=== PATIENT | female | born 1945 | race Caucasian/White ===

== ENCOUNTER 2018-07-25 10:13 | Day surgery (SDC) | payer OTHER ==
--- NOTE | 2018-07-21 14:30 | EKG ---
Test Date: 2018-07-21 Test Time: 08:33:21 Marble Cleaner: PARAS MEASUREMENT RESULTS: Intervals: Rate: 56 MN: 134 QRSD: 74 QT: 406 QTc: 391 [place]: P: 15 MN: 134 QRS: 20 T: 46 INTERPRETIVE STATEMENTS: Sinus bradycardia Low voltage QRS Borderline ECG Compared to ECG 01/21/2009 13:22:47 Low QRS voltage now present Electronically Signed On 07-21-18 14:28:55 CDT by Mukesh Dudley
--- NOTE | 2018-07-21 20:46 | RAD REPORT ---
EXAM DESCRIPTION: RAD - Chest Pa And Lat (2 Views) - 07/21/2018 11:47 am CLINICAL HISTORY: preop Chest pain. COMPARISON: CHEST PA AND LAT 2 VIEW dated 12/09/2012; CHEST PA AND LAT 2 VIEW dated 01/21/2009; CHES T SINGLE VIEW dated 11/26/2002 FINDINGS: The lungs are clear. The heart is upper limit of normal in size. Bridging anterior thoraci c spine osteophytes. Left total shoulder arthroplasty seen. IMPRESSION: No acute or concerning finding suspected.
--- OUTSIDE RECORDS SUMMARY | 2018-07-25 10:19 | XMS REPORT | Clinical Summary ---
:1945 Author Organization [facility] Address [address] [place] [address] Care Team Providers Name Role Phone Lebron Gu MD Primary Care Provider Allergies Active Allergy Reactions Severity Noted Date Comments No Known Drug Allergies 10/04/2015 Medications Medication Sig Dispensed Refills Start Date End Date Status metoprolol succinate Take 100 mg by 0 Active XL (TOPROL-XL) 100 MG mouth daily. 24 hr tablet cholecalciferol, Take 5,000 Units by 0 Active vitamin D3, (VITAMIN mouth daily. D3) 5,000 unit capsule pyridoxine, vitamin Take 100 mg by 0 Active B6, (B-6) 100 MG mouth daily. tablet lidocaine (LIDODERM) Place 1 patch on 0 Active 5 % the skin daily. Remove & Discard patch within 12 hours or as directed by oxyCODone-acetaminoph Take 1 tablet by 0 Active en (PERCOCET) 10-325 mouth every 4 mg per tablet (four) hours as needed for moderate pain. 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 Family History Medical History Relation Name Comments Cancer Father Heart disease Father Thyroid disease Father Diabetes Mother Hypertension Mother Kidney disease Mother Relation Name Status Comments Father Mother Social History Tobacco Use Types Packs/Day Years Used Date Never Smoker Smokeless Tobacco: Never Used Alcohol Use Drinks/Week oz/Week Comments No Sex Assigned at Date Recorded Not on file Job Start Date Occupation Industry Not on file Not on file Not on file Travel History Travel Start Travel End No recent travel history available. Last Filed Vital Signs Not on file Plan of Treatment Health Maintenance Due Date Last Done Comments BREAST CANCER SCREENING 08/28/1995 COLON CANCER SCREENING 08/28/1995 SHINGLES VACCINES (#1) 08/28/1995 65+ PNEUMOCOCCAL VACCINE (1 of 2 - PCV13) 2010 PNEUMOCOCCAL POLYSACCHARIDE VACCINE AGE 65 AND OVER 2010 INFLUENZA VACCINE 09/22/2018 Results Not on fileafter 07/24/2017 Insurance Payer Benefit Plan / Subscriber ID Effective Dates Phone Address Type Group MEDICARE MEDICARE PART A xxxxxxxxxx 2010-Present [place], [place] Medicare AND B MEDICAID MEDICAID xxxxxxxxx 2011-Present Medicaid
[2018-07-25] MEDS ORDERED: Ringers Lactate 1,000 ML IV ONE (10:37)
[2018-07-25] MEDS ORDERED: LIDOCAINE 2% MPF 5 ML VIAL ONE (12:13)
[2018-07-25] MEDS ORDERED: PROPOFOL 200 MG/20 ML VIAL IV ONE (12:13)
[2018-07-25] MEDS ORDERED: MIDAZOLAM HCL 2 MG/2 ML INJ ONE (12:13)
[2018-07-25] MEDS ORDERED: CIPROFLOXACIN 400mg IV 400 MG/200 ML BAG IV ONE (13:01)
[2018-07-25] MEDS ORDERED: FENTANYL CITR 100 MCG/2 ML ONE (13:14)
--- NOTE | 2018-07-25 13:47 | P.BOP ---
Preoperative diagnosis: right inner thigh tender subQ mass 11x6 cm Postoperative diagnosis: same Primary procedure: Excisional biopsy of right inner thigh tender subQ mass 11x6 cm Secondary procedure: with layer closure Estimated blood loss: <10cc Specimen: mass Findings: deep subQ mass Anesthesia: General Complications: None Transferred to: Recovery Room Condition: Good
[2018-07-25] MEDS: HYDROMORPHONE HCL 1 MG/ML INJ ONE ×2 (13:55→14:01)
[2018-07-25] MEDS ORDERED: CODEINE 30MG/APAP 300MG TAB ONE (15:14)
--- NOTE | 2018-07-26 00:30 | OP ---
Date of Procedure: 07/25/2018 Surgeon: Riley Mae MD Preoperative Diagnosis: Right inner thigh subcutaneous tender mass, 11 x 6 cm. Postoperative Diagnosis: Right inner thigh subcutaneous tender mass, 11 x 6 cm. Procedure Performed: Excisional biopsy of right inner thigh mass with layered closure, 11 x 6 cm. Findings: Deep subcutaneous mass. Anesthesia: General plus local. Indications: This is a case of a female, who comes to us with a tender mass, increasing in size. Sh akshat is concerned. She wants that excised. The benefits, alternatives, and risks of excision were full y explained to the patient, which include but not limited to infection, bleeding, damage to adjacent structures, anesthesia complication, recurrence, LA, and even . She also understands this may n ot relieve any symptoms. She might need more than one surgical intervention. She understood and sig emmanuel a consent. Description Of Procedure: The patient was brought to the operating room, placed in supine position. Anesthesia was induced without complication. Previously in the holding area, we marked the area, me , and the patient. We made an incision over that area. We noticed deep in the subcutaneous tissue. We noticed this mass present, fatty tumor present. It does not involve the fascia, goes deep near t he fascia. The mass was completely excised with the help of blunt dissection. Then after that, we h ave a large cavity, so we have to close this in layers. We used 0 chromic for layers. We used 3-0 c hromic for the intermediate layers. We used 4-0 PDS for the more subcuticular closure and then Buckhorn patrick on top. Hemostasis was obtained before closure, also local anesthetic was done before closure w ith irrigation too. The patient tolerated the procedure well. The patient was sent to recovery in stable condition . JOSE/SHELLY Voice ID: [id number] Report ID: [id number]
--- NOTE | 2018-07-26 00:30 | DS ---
Date of Discharge: 07/25/2018 Diagnosis: Right inner thigh tender subcutaneous mass Procedure: Excisional biopsy of right inner thigh tender subcutaneous mass with layered closure. Disposition: Home. Activity: As tolerated. No heavy lifting. Followup: Follow up in my office in 1 week. Call for appointment at [phone]. Keep the area dry fo r 48 hours, then may remove the dressings and shower. Medications: Include Tylenol No. 3 q.4 hours p.r.n. pain and Bactrim DS p.o. b.i.d. JOSE/SHELLY Voice ID: [id number] Report ID: [id number]
== END 2018-07-25 15:27 | disposition home or self-care (01) ==
LOC: OR 10:13
PROVIDERS: ATTEND Surgery
PROC: 0JBL0ZZ Excision of Right Upper Leg Subcutaneous Tissue and Fascia, Open Approach (ICD-10-PCS; principal; 2018-07-25 13:45)
DX: D17.23 Benign lipomatous neoplasm of skin and subcutaneous tissue of right leg (principal); I10 Essential (primary) hypertension; Z80.9 Family history of malignant neoplasm, unspecified; Z83.3 Family history of diabetes mellitus; Z82.49 Family history of ischemic heart disease and other diseases of the circulatory system
CPT/HCPCS: 93005; 88304; 71046; 11406; J2704; J3010; J1170; J0744; 88305; J2250

== ENCOUNTER 2024-03-20 07:10 | Day surgery (SDC) | payer OTHER ==
[2024-03-07 15:54] LABS: Absolute Eosinophils 0.1 K/uL (0-0.5); Absolute Lymphocytes (CBC) 2.4 K/uL (0.7-4.9); Absolute Monocytes 0.6 K/uL (0.1-1.3); Absolute Neutrophil 3.7 K/uL (1.8-8.0); Basophils % 0.4 % (0-1.3); Eosinophils % 2.1 % (0-4.4); Hematocrit 40.2 % (36.0-45.0); Hemoglobin 13.5 g/dL (12.0-15.0); Lymphocytes % 35.4 % (15.3-44.8); MCH 29.6 pg (27.0-35.0); MCHC 33.5 g/dL (32.0-36.0); MCV 88.2 fL (80-100); MPV 7.4 fL (7.6-11.3); Monocytes % 8.1 % (3.3-12.3); Platelets 226 thou/uL (152-406); RBC Red Blood Cell Count 4.56 M/uL (3.86-4.86); Red Cell Distribution Width 13.8 % (12.1-15.2)
[2024-03-07 16:01] LABS: PT Prothrombin Time 11.4 SECONDS (9.4-12.5); Protime INR 1.09
--- NOTE | 2024-03-07 16:11 | RAD REPORT ---
Procedure: Chest Pa And Lat (2 Views) HISTORY: Preop for carotid arteriogram COMPARISON: 2019 FINDINGS: The lungs appear clear of acute infiltrate. No significant pleural effusion noted. The heart is normal size. IMPRESSION: No acute abnormality is displayed.
--- NOTE | 2024-03-09 11:55 | EKG ---
Test Date: 2024-03-07 Test Time: 16:25:24 Centrifugal Drier Operator: JIM MEASUREMENT RESULTS: Intervals: Rate: 50 MD: 136 QRSD: 70 QT: 416 QTc: 379 [place]: P: 48 MD: 136 QRS: 52 T: 75 INTERPRETIVE STATEMENTS: Sinus bradycardia Nonspecific ST abnormality Abnormal ECG Compared to ECG 07/21/2018 08:33:21 ST (T wave) deviation now present Electronically Signed On 03-09-24 11:54:58 OUTBOARD SYSTEM OPERATOR by Mauricio Pierson
[2024-03-20] MEDS ORDERED: NA CHLORIDE 0.9% 500 ML ONE (07:26)
[2024-03-20 07:47] VITALS: TEMP 97.5
[2024-03-20] MEDS ORDERED: HEPA 1000U/500MLS 2,000 UNIT/1,000 ML BAG IV ONE (08:30)
[2024-03-20] MEDS ORDERED: LIDOCAINE 1% 20 ML MDV ONE (08:31)
[2024-03-20] MEDS ORDERED: HEPARIN 5000 UNIT/ML 1 ML VIAL ONE (08:31)
[2024-03-20] MEDS ORDERED: ASPIRIN 325 MG TAB ONE (09:54)
[2024-03-20] MEDS ORDERED: HEPARIN 10,000 UNIT/10 ML VIAL IV ONE (09:56)
[2024-03-20] MEDS ORDERED: FENTANYL CITR 100 MCG/2 ML ONE (10:57)
[2024-03-20] MEDS ORDERED: MIDAZOLAM HCL 2 MG/2 ML INJ ONE (10:57)
[2024-03-20 14:47] VITALS: BP 123/50; O2SAT 100
--- NOTE | 2024-03-22 02:46 | OP ---
Date of Procedure: 03/20/2024 Surgeon: Mauricio Pierson Procedure Performed: 1.Selective coronary angiogram. 2.Carotid angiogram. Indication For Procedure: Abnormal stress test with abnormal carotid duplex. Complications: None. Estimated Blood Loss: Less than 50 cc. Access: Right common femoral artery, closed by Mynx. Sedation Time: 20 minutes with 1 of Versed and 25 of fentanyl. Description Of Procedure: After risks, benefits, and alternatives were explained to the patient, pat ient agreed to proceed with procedure and signed informed consent. The patient was brought back to [facility]able materials collector, prepped and draped in sterile fashion. Time-out was performed. Sedation was administer ed. Next, the right common femoral artery access was obtained using ultrasound-guided micropuncture technique. A JL4 catheter was advanced to the aortic root. Selective angiogram of the left system w as done using that catheter, that was later exchanged with a JR4 catheter for the selective angiogram of the right coronary systems. That catheter was later pulled for the right and left common carotid arteries angiogram. At the end of procedure, catheter was removed over a J-wire. Sheath was remove d. Mynx was applied. Hemostasis achieved and the patient was moved back to recovery in stable condi tion. Findings: 1.Left main normal. 2.LAD, diffuse mild luminal irregularities. 3.Left circ, mild luminal irregularities. 4.RCA, mild luminal irregularities. Carotid Angiogram Findings: 1.Right internal carotid artery patent. 2.Left internal carotid artery tortuous with mid 20% disease, then mild luminal irregularities. Assessment And Plan: 1.Normal coronaries. 2.Mild left internal carotid artery disease. Plan will be to continue medical management. BLAINE/SHELLY Voice ID: [id number] Report ID: [id number]
== END 2024-03-20 13:13 | disposition home or self-care (01) ==
LOC: CCL 07:10
PROVIDERS: ADMIT Internal Medicine; ATTEND Internal Medicine Interventional Cardiology
DX: I65.22 Occlusion and stenosis of left carotid artery (principal); R94.39 Abnormal result of other cardiovascular function study; R07.9 Chest pain, unspecified; I10 Essential (primary) hypertension; E11.9 Type 2 diabetes mellitus without complications; E78.2 Mixed hyperlipidemia; Z79.899 Other long term (current) drug therapy; Z82.49 Family history of ischemic heart disease and other diseases of the circulatory system
CPT/HCPCS: 93005; 85025; 80048; 36415; 85610; 82947; 85730; 71046; 93454; 36222; 76937; C1893; Q9967; J2003; J2250; J3010; J7040; 99152; 99153; J1644